=== PATIENT | male | born 2000 | race Caucasian/White ===

== ENCOUNTER 2020-03-16 12:57 | Emergency (ER) | payer OTHER ==
[2020-03-16] MEDS ORDERED: Ketorolac Tromethamine 30 MG/ML VIAL ONE (15:13)
== END 2020-03-16 15:54 | disposition home or self-care (01) ==
LOC: ERS 12:57
DX: M62.830 Muscle spasm of back (principal); Z87.891 Personal history of nicotine dependence
CPT/HCPCS: 96372; 99283; J1885